=== PATIENT | female | born 1975 | race African-American/Black ===

== ENCOUNTER 2017-03-06 07:53 | Inpatient (IN) | payer OTHER, BC ==
[~2017-03-06] VITALS: Ht 175.3 cm; Wt 104.1 kg
[2017-03-06] VITALS (13 sets, daily range): BP systolic 91–123; BP diastolic 50–67; PULSE 50–79; RESP 12–20; TEMP 97.4–98.4; O2SAT 98–100
[~2017-03-06 07:53] MED LIST: TRAM50 PO
[2017-03-06] MEDS: SODIUM CHLORIDE 0.9% FLUSH 10 ML FLUSH IVF PRN ×2 (08:10→10:36)
[2017-03-06 08:19] LABS: I-STAT POTASSIUM 3.7 MMOL/L (3.5-4.9)
[2017-03-06 08:22] LABS: AUTOMATED NEUTROPHIL # 2.7 TH/MM3 (1.8-7.7); BASOPHIL # 0.1 TH/MM3 (0-0.2); BASOPHIL % 1.7 % (0.0-2.0); EOSINOPHIL % 0.7 % (0.0-4.0); LYMPH % 27.1 % (9.0-44.0); LYMPHOCYTE # 1.2 TH/MM3 (1.0-4.8); MEAN CELL VOLUME 51.9 FL (80.0-100.0); MEAN CORPUSCULAR HEMOGLOBIN 14.5 PG (27.0-34.0); MONO % 9.8 % (0.0-8.0); NEUT % 60.7 % (16.0-70.0); PLATELET COUNT 394 TH/MM3 (150-450); RED BLOOD COUNT 4.11 MIL/MM3 (4.00-5.30); RED CELL DISTRIBUTION WIDTH 20.1 % (11.6-17.2); WHITE BLOOD COUNT 4.5 TH/MM3 (4.0-11.0)
[2017-03-06 08:25] LABS: HEMO FLAGS DIFF FINAL
[2017-03-06 08:28] LABS: HEMATOCRIT 21.3 % (35.0-46.0)
[2017-03-06 08:29] LABS: APTT (PATIENT) 21.5 SEC (24.3-30.1); PROTHROMBIN TIME - PATIENT 10.7 SEC (9.8-11.6)
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
[2017-03-06] MEDS ORDERED: HYDROmorphone HCL PF 1 MG/ML VIAL IV PUSH ONE (10:30)
[2017-03-06] MEDS ORDERED: ONDANSETRON HCL 4 MG/2 ML VIAL IV PUSH ONE (10:30)
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
[2017-03-06] MEDS ORDERED: HYDROmorphone HCL PF 2 MG/ML VIAL IVP PRN (13:00)
[2017-03-06] MEDS ORDERED: CHLORHEXIDINE GLUCONATE 2 % 1 PACK (2 CLOTHS) TOP PRN (13:00)
[2017-03-06] MEDS ORDERED: MISCELLANEOUS NURSING INFORMATION XX SCH (13:00)
[2017-03-06] MEDS ORDERED: ONDANSETRON HCL 4 MG/2 ML VIAL IV PUSH PRN (13:00)
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
[2017-03-06] MEDS: CYCLOBENZAPRINE HCL 10 MG TAB PO SCH ×2 (13:39→23:14)
[2017-03-06] MEDS: ACETAMINOPHEN/HYDROcodone 325 MG/5 MG TAB PO PRN ×2 (13:39→18:09)
[2017-03-06] MEDS ORDERED: IOHEXOL 350 MG/ML 10 ML VIAL (for RAD DIAG) IVCONTRAST ONE (14:13)
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
[2017-03-06] MEDS ORDERED: LACTULOSE SYRUP 20 GM/30 ML CUP PO PRN (15:15)
[2017-03-06 16:10] LABS: AUTOMATED NEUTROPHIL # 3.4 TH/MM3 (1.8-7.7); BASOPHIL # 0.1 TH/MM3 (0-0.2); BASOPHIL % 1.5 % (0.0-2.0); EOSINOPHIL % 0.5 % (0.0-4.0); LYMPH % 31.9 % (9.0-44.0); LYMPHOCYTE # 1.8 TH/MM3 (1.0-4.8); MEAN CORPUSCULAR HEMOGLOBIN 14.8 PG (27.0-34.0); MONO % 7.1 % (0.0-8.0); PLATELET COUNT 358 TH/MM3 (150-450); RED BLOOD COUNT 3.79 MIL/MM3 (4.00-5.30); RED CELL DISTRIBUTION WIDTH 19.9 % (11.6-17.2); WHITE BLOOD COUNT 5.7 TH/MM3 (4.0-11.0)
[2017-03-06 16:32] LABS: HEMO FLAGS DIFF FINAL; MEAN CORPUSCULAR HGB CONC 28.5 % (32.0-36.0)
[2017-03-06 16:35] LABS: HEMATOCRIT 19.7 % (35.0-46.0)
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
[2017-03-06] MEDS: GABAPENTIN 100 MG CAP PO SCH (18:08)
[2017-03-06] MEDS ORDERED: SODIUM CHLOR 0.9% 250 ML INJ 250 ML IV ONE (18:45)
[2017-03-06] MEDS: DOCUSATE SODIUM 100 MG CAP PO SCH (23:15)
[2017-03-06] MEDS: MAGNESIUM HYDROXIDE SUSP 30 ML CUP PO SCH (23:15)
[2017-03-07] VITALS (8 sets, daily range): BP systolic 92–114; BP diastolic 46–62; PULSE 61–82; RESP 12–20; TEMP 97.3–98.3; O2SAT 98–100
[2017-03-07] MEDS: ACETAMINOPHEN/HYDROcodone 325 MG/5 MG TAB PO PRN ×5 (02:54→22:27)
[2017-03-07] MEDS ORDERED: CHLORHEXIDINE GLUCONATE 2 % 1 PACK (2 CLOTHS) TOP SCH (04:00)
[2017-03-07] MEDS: CYCLOBENZAPRINE HCL 10 MG TAB PO SCH ×3 (05:50→22:28)
[2017-03-07 08:05] LABS: AUTOMATED NEUTROPHIL # 2.2 TH/MM3 (1.8-7.7); BASOPHIL # 0.1 TH/MM3 (0-0.2); BASOPHIL % 1.2 % (0.0-2.0); EOSINOPHIL # 0.1 TH/MM3 (0-0.4); EOSINOPHIL % 2.2 % (0.0-4.0); HEMATOCRIT 23.9 % (35.0-46.0); HEMO FLAGS DIFF FINAL; LYMPH % 34.4 % (9.0-44.0); LYMPHOCYTE # 1.5 TH/MM3 (1.0-4.8); MEAN CELL VOLUME 55.9 FL (80.0-100.0); MEAN CORPUSCULAR HEMOGLOBIN 17.2 PG (27.0-34.0); MEAN CORPUSCULAR HGB CONC 30.8 % (32.0-36.0); MONO % 9.9 % (0.0-8.0); NEUT % 52.3 % (16.0-70.0); PLATELET COUNT 311 TH/MM3 (150-450); RED BLOOD COUNT 4.28 MIL/MM3 (4.00-5.30); RED CELL DISTRIBUTION WIDTH 23.4 % (11.6-17.2); WHITE BLOOD COUNT 4.3 TH/MM3 (4.0-11.0)
[2017-03-07] MEDS: GABAPENTIN 100 MG CAP PO SCH ×3 (08:15→17:31)
[2017-03-07] MEDS: DOCUSATE SODIUM 100 MG CAP PO SCH ×2 (08:15→22:27)
[2017-03-07 08:33] LABS: BICARBONATE 25.8 MEQ/L (21.0-32.0); POTASSIUM 3.7 MEQ/L (3.5-5.1)
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
[2017-03-07] MEDS ORDERED: DOCU1CAP39 PO (17:06)
[2017-03-07] MEDS ORDERED: MAGN400S PO (17:06)
[2017-03-07] MEDS: MAGNESIUM HYDROXIDE SUSP 30 ML CUP PO SCH (22:28)
[2017-03-08 00:29] VITALS: BP 98/54; PULSE 60; RESP 20; TEMP 97.5; O2SAT 98
[2017-03-08] MEDS: ACETAMINOPHEN/HYDROcodone 325 MG/5 MG TAB PO PRN ×2 (03:17→07:14)
[2017-03-08 04:20] LABS: HEMATOCRIT 24.3 % (35.0-46.0); REVIEW FLAG FINAL
[2017-03-08 04:44] VITALS: BP 92/52; PULSE 61; RESP 20; TEMP 97.4; O2SAT 99
[2017-03-08 04:49] LABS: ANION GAP 6 MEQ/L (5-15); AST (GOT) 13 U/L (15-37); BICARBONATE 27.5 MEQ/L (21.0-32.0); BLOOD UREA NITROGEN 10 MG/DL (7-18); CHLORIDE 109 MEQ/L (98-107); GLOMERULAR FILTRATION RATE 120 ML/MIN (>89); SODIUM (NA) 142 MEQ/L (136-145)
[2017-03-08 04:50] LABS: ALT (GPT) 13 U/L (10-53)
[2017-03-08 04:52] LABS: ALKALINE PHOSPHATASE 66 U/L (45-117); TOTAL BILIRUBIN ADULT 0.8 MG/DL (0.2-1.0)
[2017-03-08] MEDS: CYCLOBENZAPRINE HCL 10 MG TAB PO SCH (05:42)
[2017-03-08 08:00] VITALS: BP 113/56; PULSE 62; RESP 16; TEMP 97.5; O2SAT 95
[2017-03-08 09:48] VITALS: RESP 20
[2017-03-08] MEDS: GABAPENTIN 100 MG CAP PO SCH (09:49)
[2017-03-08] MEDS: DOCUSATE SODIUM 100 MG CAP PO SCH (09:49)
[2017-03-08] MEDS ORDERED: CYCL1TAB29 PO (11:46)
[2017-03-08] MEDS ORDERED: HYDR-3516 PO (11:46)
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
== END 2017-03-08 13:35 | disposition home or self-care (01) | DRG 552 ==
LOC: NEPE 07:53 → NEDA 13:36 → N05A 17:08
PROVIDERS: ADMIT Surgery Trauma Surgery; ATTEND Surgery Trauma Surgery
PROC: 30233N1 Transfusion of Nonautologous Red Blood Cells into Peripheral Vein, Percutaneous Approach (ICD-10-PCS; principal; 2017-03-06)
DX: S13.4XXA Sprain of ligaments of cervical spine, initial encounter (principal); S36.112A Contusion of liver, initial encounter; M32.9 Systemic lupus erythematosus, unspecified; E66.9 Obesity, unspecified; D64.9 Anemia, unspecified; S20.229A Contusion of unspecified back wall of thorax, initial encounter; R20.2 Paresthesia of skin; S33.5XXA Sprain of ligaments of lumbar spine, initial encounter; M25.539 Pain in unspecified wrist; M51.26 Other intervertebral disc displacement, lumbar region; R01.1 Cardiac murmur, unspecified; M54.2 Cervicalgia; Z98.84 Bariatric surgery status; V89.2XXA Person injured in unspecified motor-vehicle accident, traffic, initial encounter
CPT/HCPCS: 36430; 70450; 71010; 71260; 72125; 72131; 72141; 72146; 72148; 72170; 73100; 73600; 74177; 80048; 80053; 82435; 82565; 82947; 84132; 84295; 84520; 85014; 85018; 85025; 85610; 85730; 86850; 86900; 86901; 86920; 94150; J1170; J2405; J7050; P9016; Q9967

== ENCOUNTER 2017-03-24 08:42 | Emergency (ER) | payer OTHER, BC ==
[~2017-03-24] VITALS: Ht 175.3 cm; Wt 100.0 kg
[~2017-03-24 08:42] MED LIST changes: +CYCL1TAB29 PO; +DOCU1CAP39 PO; +HYDR-3516 PO; +MAGN400S PO; -TRAM50 PO
[2017-03-24 08:45] VITALS: BP 138/72; PULSE 107; RESP 22; TEMP 98.5; O2SAT 100
[2017-03-24] MEDS ORDERED: FERR325T8 PO (09:17)
[2017-03-24] MEDS ORDERED: SODIUM CHLOR 0.9% 1000 ML INJ 1,000 ML IV SCH (09:19)
[2017-03-24] MEDS ORDERED: SODIUM CHLORIDE 0.9% FLUSH 10 ML FLUSH IV FLUSH PRN (09:30)
[2017-03-24] MEDS ORDERED: ONDANSETRON HCL 4 MG/2 ML VIAL IVP ONE (09:30)
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
[2017-03-24 10:29] LABS: BILIRUBIN, URINE NEG (NEG); BLOOD, URINE NEG (NEG); GLUCOSE,URINE NEG (NEG); KETONE, URINE NEG (NEG); NITRITE,URINE NEG (NEG); PH, URINE 5.5 (5.0-8.5); SQUAMOUS EPITHELIAL CELL URINE 1 /hpf (0-5); URINE COLOR YELLOW (YELLW/STRAW); URINE LEUKOCYTE ESTERASE NEG (NEG)
[2017-03-24 10:31] LABS: AUTOMATED NEUTROPHIL # 2.9 TH/MM3 (1.8-7.7); BASOPHIL # 0.1 TH/MM3 (0-0.2); BASOPHIL % 1.8 % (0.0-2.0); EOSINOPHIL % 0.7 % (0.0-4.0); HEMATOCRIT 29.7 % (35.0-46.0); HEMOGLOBIN 8.7 GM/DL (11.6-15.3); LYMPH % 29.3 % (9.0-44.0); LYMPHOCYTE # 1.4 TH/MM3 (1.0-4.8); MEAN CELL VOLUME 56.9 FL (80.0-100.0); MEAN CORPUSCULAR HEMOGLOBIN 16.6 PG (27.0-34.0); MEAN PLATELET VOLUME 8.6 FL (7.0-11.0); MONO % 8.2 % (0.0-8.0); MONOCYTE # 0.4 TH/MM3 (0-0.9); PLATELET COUNT 494 TH/MM3 (150-450); RED BLOOD COUNT 5.21 MIL/MM3 (4.00-5.30); RED CELL DISTRIBUTION WIDTH 26.4 % (11.6-17.2); WHITE BLOOD COUNT 4.8 TH/MM3 (4.0-11.0)
[2017-03-24 10:32] LABS: MEAN CORPUSCULAR HGB CONC 29.2 % (32.0-36.0)
[2017-03-24 10:39] LABS: PROTHROMBIN TIME - PATIENT 10.7 SEC (9.8-11.6)
[2017-03-24 10:47] LABS: ALBUMIN 3.7 GM/DL (3.4-5.0); ALT (GPT) 31 U/L (10-53); AST (GOT) 26 U/L (15-37); BLOOD UREA NITROGEN 11 MG/DL (7-18); CALCIUM 9.1 MG/DL (8.5-10.1); CHLORIDE 108 MEQ/L (98-107); CREATININE 0.74 MG/DL (0.50-1.00); GLOMERULAR FILTRATION RATE 105 ML/MIN (>89); GLUCOSE,RANDOM 83 MG/DL (74-106); LIPASE 186 U/L (73-393); SODIUM (NA) 139 MEQ/L (136-145)
[2017-03-24 10:50] LABS: ALKALINE PHOSPHATASE 86 U/L (45-117); TOTAL BILIRUBIN ADULT 0.8 MG/DL (0.2-1.0); TOTAL PROTEIN 7.9 GM/DL (6.4-8.2)
[2017-03-24 11:09] LABS: ACANTHOCYTES 1+ (NORMAL); OVALOCYTES 1+ (NORMAL)
[2017-03-24] MEDS ORDERED: IOHEXOL 350 MG/ML 10 ML VIAL (for RAD DIAG) IVCONTRAST ONE (11:54)
--- NOTE | 2017-03-24 12:05 | RADRPT ---
EXAM DATE/TIME: 03/24/2017 11:44 [facility] COMPARISON: CT ABDOMEN & PELVIS W CONTRAST, March 06, 2017, 13:50. INDICATIONS : Lower abdomen pain for two weeks. IV CONTRAST: 89 cc Omnipaque 350 (iohexol) IV ORAL CONTRAST: No oral contrast ingested. RADIATION DOSE: 15.62 CTDIvol (mGy) ; Patient body habitus MEDICAL HISTORY : Lupus. SURGICAL HISTORY : Gastric bypass. Tubal ligation. section. ENCOUNTER: Initial ACUITY: 2 weeks PAIN SCALE: 7/10 LOCATION: Bilateral lower quadrant TECHNIQUE: Volumetric scanning of the abdomen and pelvis was performed. Using automated exposure control and ad justment of the mA and/or kV according to patient size, radiation dose was kept as low as reasonably achievable to obtain optimal diagnostic quality images. DICOM format image data is available electro nically for review and comparison. FINDINGS: LOWER LUNGS: The visualized lower lungs are clear. LIVER: Remains normal in size and shape. There is mild hepatic steatosis with focal area of decreased attenu ation again noted involving left lobe of the liver and falciform ligament region.. There is no dilat ion of the biliary tree. No calcified gallstones. The gallbladder is unremarkable. SPLEEN: Normal size without lesion. PANCREAS: Within normal limits. KIDNEYS: Normal in size and shape. There is no mass, stone or hydronephrosis. ADRENAL GLANDS: Within normal limits. VASCULAR: There is no aortic aneurysm. BOWEL/MESENTERY: There are postsurgical changes involving the stomach consistent with history of gastric bypass surger y. The small bowel, and colon demonstrate no acute abnormality. There is no free intraperitoneal air or fluid. ABDOMINAL WALL: Within normal limits. RETROPERITONEUM: There is no lymphadenopathy. BLADDER: No wall thickening or mass. REPRODUCTIVE: Within normal limits. INGUINAL: There is no lymphadenopathy or hernia. MUSCULOSKELETAL: Within normal limits for patient age. CONCLUSION: 1. Unremarkable bowel gas pattern no obstruction or inflammatory change. 2. Stable postsurgical changes involving the stomach status post gastric bypass surgery. 3. Stable benign-appearing focal area decreased attenuation in the liver with mild hepatic steatosis. James Bahena MD on March 24, 2017 at 12:01 Board Certified Radiologist. This report was verified electronically.
[2017-03-24] MEDS ORDERED: ZOFR4TAB PO (12:36)
== END 2017-03-24 14:06 | disposition home or self-care (01) ==
LOC: NEPD 08:42
DX: R10.30 Lower abdominal pain, unspecified (principal); D64.9 Anemia, unspecified; R11.0 Nausea; K76.0 Fatty (change of) liver, not elsewhere classified
CPT/HCPCS: 74177; 80053; 81001; 83690; 84703; 85025; 85610; 85730; 96361; 96374; 99285; J2405; J7030; Q9967